=== PATIENT | female | born 1995 | race Caucasian/White ===

== ENCOUNTER 2022-01-10 11:35 | Emergency (ER) | payer MEDICAID ==
[2022-01-10 12:25] VITALS: BP 120/80; PULSE 68
== END 2022-01-10 13:05 | disposition home or self-care (01) ==
LOC: JD.ED 11:35
DX: K08.89 Other specified disorders of teeth and supporting structures (principal)
CPT/HCPCS: 99282

== ENCOUNTER 2022-01-31 12:22 | Emergency (ER) | payer MEDICAID ==
[2022-01-31 12:47] VITALS: BP 106/60; PULSE 78
[2022-01-31] MEDS ORDERED: Metoclopramide 10 MG/2 ML SDV IVPUSH ONE (13:06)
[2022-01-31] MEDS ORDERED: Sodium Chloride 0.9% 1,000 ML IV ONE (13:06)
[2022-01-31] MEDS ORDERED: Ketorolac 30 MG/ML SDV IVPUSH ONE (13:06)
[2022-01-31] MEDS ORDERED: diphenhydrAMINE 50 MG/ML SDV IVPUSH ONE (13:06)
[2022-01-31 14:03] LABS: ESTIMATED GFR 89 mL/min (>60)
== END 2022-01-31 14:45 | disposition home or self-care (01) ==
LOC: JD.ED 12:22
DX: G43.009 Migraine without aura, not intractable, without status migrainosus (principal)
CPT/HCPCS: 36415; 80053; 85025; 96361; 96374; 96375; 99283; J1200; J1885; J2765; J7030